=== PATIENT | female | born 1970 | race African-American/Black ===

== ENCOUNTER 2018-07-13 10:55 | Emergency (ER) | payer OTHER ==
[2018-07-13 11:37] LABS: BASOPHILS % (AUTO) 0.8 %; EOSINOPHILS # (AUTO) 0.1 10^3/uL (0.0-0.7); EOSINOPHILS % (AUTO) 2.3 %; HGB - HEMOGLOBIN 12.3 g/dL (12.0-16.0); LYMPHOCYTES # (AUTO) 1.8 10^3/uL (1.5-3.5); LYMPHOCYTES % (AUTO) 40.5 %; MEAN CORPUSCULAR HEMOGLOBIN 30.3 pg (27.0-31.0); MEAN CORPUSCULAR VOLUME 89.1 fL (81.0-99.0); MEAN PLATELET VOLUME 9.7 fL (7.9-10.8); MONOCYTES # (AUTO) 0.4 10^3/uL (0.0-1.0); MONOCYTES % (AUTO) 8.3 %; NEUTROPHILS # (AUTO) 2.2 10^3/uL (1.5-6.6); NEUTROPHILS % (AUTO) 48.1 %; PLT - PLATELET COUNT 206 10^3/uL (130-450); RED BLOOD COUNT 4.08 10^6/uL (4.20-5.40); RED CELL DISTRIBUTION WIDTH 14.8 % (12.0-15.0); WHITE BLOOD COUNT 4.5 x10^3/uL (4.8-10.8)
[2018-07-13 11:49] LABS: ALBUMIN 3.8 g/dL (3.2-5.5); BILIRUBIN,TOTAL 0.6 mg/dL (0.2-1.0); CALCIUM 8.3 mg/dL (8.5-10.3); CREATININE 0.7 mg/dL (0.4-1.0); TOTAL PROTEIN 7.5 g/dL (6.7-8.2)
--- NOTE | 2018-07-13 12:04 | ED Physician Documentation ---
PD HPI CHEST PAIN - Stated complaint Stated Complaint: CHEST PX - Chief complaint Chief Complaint: Cardiac - History obtained from History obtained from: Patient - History of Present Illness Timing - onset: How many days ago (1-2) Timing - onset during: Light activity Timing - details: Abrupt onset, Waxing and waning Quality: Pressure, Aching, Sharp, Pain Location: Left chest Radiation: Neck, Back Improved by: Rest Worsened by: Inspiration, Movement, Palpation. No: Exertion Associated symptoms: Shortness of air. No: Nausea, Feeling faint / dizzy, Palpitations, Cough Similar symptoms before: Has not had sx before, Other (recently traveled from [place] Recently seen: Not recently seen Review of Systems Constitutional: denies: Fever, Chills, Myalgias Nose: denies: Rhinorrhea / runny nose, Congestion Throat: denies: Sore throat Cardiac: reports: Chest pain / pressure. denies: Palpitations, Pedal edema, Calf pain Respiratory: reports: Dyspnea. 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 - Present Medications Home Medications: Ambulatory Orders Medication Instructions Recorded Confirmed Dexamethasone [Decadron] 4 mg PO DAILY #5 tablet 07/13/18 RX: Naproxen [Naprosyn] 500 mg PO BID PRN #20 tablet 07/13/18 RX: Tramadol HCl 50 mg PO Q6H PRN #20 tablet 07/13/18 - Allergies Allergies/Adverse Reactions: Allergies Allergy/AdvReac Type Severity Reaction Status Date / Time No Known Drug Allergies Allergy Verified 07/13/18 11:02 - Social History Does the pt smoke?: No Smoking Status: Never smoker Does the pt drink ETOH?: Yes Does the pt have substance abuse?: No - Immunizations Immunizations are current?: Yes PD ED PE NORMAL - Vitals Vital signs reviewed: Yes - General General: Alert and oriented X 3, No acute distress, Well developed/nourished - HEENT HEENT: Ears normal, Moist mucous membranes, Pharynx benign - Neck Neck: Supple, no meningeal sign, No adenopathy - Cardiac Cardiac: RRR, No murmur - Respiratory Respiratory: Clear bilaterally, Other (left chest wall tenderness upper area and parasternal. No rash nor sores. Does not hurt with light touch. ) - Abdomen Abdomen: Normal bowel sounds, Soft, Non tender, Non distended - Back Back: No CVA TTP - Derm Derm: Normal color, Warm and dry - Extremities Extremities: No deformity, No tenderness to palpate, Normal ROM s pain, No edema, No calf tenderness / cord - Neuro Neuro: Alert and oriented X 3, No motor deficit, Normal speech Results - Vitals Vitals: Vital Signs - 24 hr 07/13/18 07/13/18 07/13/18 10:59 11:05 11:30 Temperature 35.7 C L Heart Rate 79 59 L Respiratory 16 18 Rate Blood Pressure 165/125 H 117/73 151/90 H O2 Saturation 100 99 Oxygen O2 Source Room air - Labs Labs: Laboratory Tests 07/13/18 07/13/18 07/13/18 11:18 11:18 11:18 WBC 4.5 L RBC 4.08 L Hgb 12.3 Hct 36.3 L MCV 89.1 MCH 30.3 MCHC 34.0 RDW 14.8 Plt Count 206 MPV 9.7 Manual Slide Review Indicated Sodium 132 L Potassium 3.6 Chloride 99 L Carbon Dioxide 25 Anion Gap 8.0 BUN 10 Creatinine 0.7 Estimated GFR (MDRD) 109 Glucose 88 Calcium 8.3 L Total Bilirubin 0.6 AST 18 ALT 15 Alkaline Phosphatase 68 Troponin I < 0.04 Total Protein 7.5 Albumin 3.8 Globulin 3.7 Albumin/Globulin Ratio 1.0 Lipase 24 - Rads (name of study) chest Radiology: Prelim report reviewed, EMP read contemporaneously (no acute) chest angio Radiology: Prelim report reviewed (neg for PE nor other acute process. ) PD MEDICAL DECISION MAKING - ED course Complexity details: reviewed results, considered differential (has pain worse with palpation and movement, as well as deep breathing. Did have recent travel. ), d/w patient Departure - Departure Disposition: 01 Home, Self Care Clinical Impression: Chest pain, musculoskeletal Condition: Stable Record reviewed to determine appropriate education?: Yes Instructions: ED Chest Pain Costochondritis Follow-Up: Nicola Dennis ARNP [Primary Care Provider] - Prescriptions: Dexamethasone [Decadron] 4 mg PO DAILY #5 tablet RX: Naproxen [Naprosyn] 500 mg PO BID PRN #20 tablet PRN Reason: Pain RX: Tramadol HCl 50 mg PO Q6H PRN #20 tablet PRN Reason: Pain Comments: Your test today did not show any serious cause of the chest pain. It has some musculoskeletal component to the story of it. We will treat it with anti- inflammatories of Decadron and naproxen and to that add Tylenol and/or tramadol if needed for pain. This should taper down over the next few days and improve. Follow-up with your primary care if it does not improve in the next several days or if you have other symptoms develop. Discharge Date/Time: 07/13/18 14:55
[2018-07-13 12:09] LABS: PLATELET ESTIMATE, MANUAL NORMAL (130-450,000) (NORMAL)
--- NOTE | 2018-07-13 12:34 | XRAY Report ---
Reason: chest pain Procedure Date: 07/13/2018 Accession Number: [id number] / [id number] Procedure: XR - Chest 2 View X-Ray CPT Code: 73082 FULL RESULT: EXAM: CHEST RADIOGRAPHY EXAM DATE: 07/13/2018 11:38 AM. CLINICAL HISTORY: Chest pain. COMPARISON: None. TECHNIQUE: 2 views. FINDINGS: Lungs/Pleura: No focal opacities evident. No pleural effusion. No pneumothorax. Normal volumes. Mediastinum: Heart and mediastinal contours are unremarkable. Other: None. IMPRESSION: No acute cardiopulmonary abnormality. [facility]
[2018-07-13] MEDS ORDERED: IOPAMIDOL-300 100 ML VIAL ONE (12:45)
--- NOTE | 2018-07-13 14:17 | CT Report ---
Reason: left chest pain, recent travel; elevated d-dimer Procedure Date: 07/13/2018 Accession Number: [id number] / [id number] Procedure: CT - Chest Angio (PE) CPT Code: FULL RESULT: EXAM: CT ANGIOGRAM CHEST EXAM DATE: 07/13/2018 01:46 PM. CLINICAL HISTORY: Left chest pain, recent travel; elevated D-dimer. COMPARISON: None. TECHNIQUE: Routine helical imaging was performed through the chest in the pulmonary arterial phase. IV Contrast: Isovue-300, 80 mL. Reconstructions: Coronal 3-D MIP reconstructions.Sagittal and coronal. In accordance with CT protocol optimization, one or more of the following dose reduction techniques were utilized for this exam: automated exposure control, adjustment of mA and/or KV based on patient size, or use of iterative reconstructive technique. FINDINGS: Pulmonary Arteries: Diagnostic quality: Adequate through the segmental arteries. No evidence for acute or chronic pulmonary emboli. RV/LV is within normal limits. There is no interventricular septal bowing. There is no reflux of contrast material in the IVC. Lungs/Pleura: No consolidation, nodules, or edema. No effusions or pneumothorax. Mediastinum: Normal. No cardiac enlargement. There is asymmetric prominence of the right hilar soft tissues measuring up to 1.3 cm, likely benign lymph node prominence. Thoracic Aorta: Unremarkable. Upper Abdomen: Unremarkable. Other: None. IMPRESSION: No pulmonary embolism. [facility]
[2018-07-13 14:55] VITALS: BP 126/85
[2018-07-13] MEDS ORDERED: IOPAMIDOL-300 100 ML VIAL IVP ONE (16:48)
== END 2018-07-13 14:55 | disposition home or self-care (01) ==
LOC: ED 10:55
DX: R07.89 Other chest pain (principal)
CPT/HCPCS: 36415; 71046; 71275; 80053; 83690; 84484; 85025; 85379; 93005; 99284; Q9967